=== PATIENT | female | born 1945 | race Caucasian/White ===

== ENCOUNTER → 2017-03-30 | Day surgery (SDC) | payer OTHER ==
[2017-03-12 09:23] VITALS: BMI 24.0
--- NOTE | 2017-03-29 13:30 | History and Physical ---
History & Physical Date Mar 29, 2017. Chief Complaint right foot pain History of Present Illness The patient is a 71 year old female with complaints of right foot 1st MTP joint pain. She had a previous hallux valgus correction and the 1st MTP arthritic change began worsening and her pain worsened. She was treated conservatively but failed conservative management. She is being set up for surgical tx. Past Medical/Surgical History Medical Problems: (1) History of orthopedic surgery (2) Hypertension Surgical Problems: (1) History of hysterectomy (2) History of oophorectomy (3) Cataract surgery Allergies Coded Allergies: No Known Allergies (Unverified , 03/12/17) Home Medications Scheduled Amlodipine (Norvasc), 5 MG PO HS Apoaequorin (Prevagen), 1 CAP PO HS Aspirin (Aspirin Chewable), 81 MG PO HS Brimonidine Tartrate (Alphagan P Oph), 1 DROP OPB BID Latanoprost (Latanoprost), 1 DROP OPB HS Zolpidem Tartrate (Ambien), 5 MG PO HS Physical Examination Skin: warm/dry, no rash, + pertinent finding (Healed surgical incisions right forefoot.) Eyes: normal inspection ENT: normal ENT inspection Head: normocephalic, atraumatic Neck: supple, no adenopathy, trachea midline Respiratory/Chest: lungs clear, normal breath sounds, no respiratory distress Cardiovascular: regular rate, rhythm Abdomen / GI: normal bowel sounds, non tender Extremities: + pertinent finding (Right foot: antalgic right gait. 1st MTP swelling and tenderness. 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 Plan of Treatment Recommend a right foot 1st MTP Arthrosurface 1st MTP hemiarthroplasty. All potential risks, benefits, complications, alternatives, and rehab have been discussed and the patient wishes to proceed. She will be scheduled for 03.30.17.
[~2017-03-30] VITALS: Ht 157.5 cm; Wt 61.4 kg
[~2017-03-30] MED LIST: AMLO-110 PO; APOA1CAP PO; ASPCH81X PO; ATROPINE SULFATE 0.1 MG/ML 5ML SYR IV PRN; BACITRACIN 50000 UNIT VIAL ONE; BRIM0.1S OPB; DEXAMETHASONE SOD INJ 4 MG/ML VIAL ONE; EpHEDrine SULFATE INJ 50 MG/ML AMP IV PRN; FENTANYL CITRATE INJ 50 MCG/1 ML 2 ML VIAL IV PRN; FENTANYL CITRATE INJ 50 MCG/1 ML 2 ML VIAL ONE; FLUMAZENIL 0.1 MG/1 ML 10 ML VIAL IV PRN; HYDROmorphone INJ 1 MG/ML SYR ONE; HYDROmorphone INJ 2 MG/ML SYR/VIAL IV PRN; KETOROLAC TROMETHAMINE 30 MG/ML VIAL IV STA; KETOROLAC TROMETHAMINE 30 MG/ML VIAL ONE; LABETALOL HCL IV 5 MG/ML 20ML IV PRN; LACTATED RINGER'S 1000ML 1,000 ML IV SCH; LIDOCAINE HCL 2% 2 ML VIAL (20MG/ML) ONE; MEPERIDINE HCL 25 MG/ML CARP IV PRN; MIDAZOLAM HCL 1 MG/ML 2ML VIAL ONE; NALOXONE HCL 0.4 MG/1 ML VIAL/CARP IV PRN; NURSING VERBAL MED ORDER ONE; ONDANSETRON INJ 2 MG/ML 2 ML VIAL IV PRN; ONDANSETRON INJ 2 MG/ML 2 ML VIAL ONE; OXYC-57 PO; OXYCODONE/ACETAMINOPHEN 5-325 TAB PO PRN; PHENYLEPHRINE 100MCG/ML 5ML SYR IV PRN; PROMETHAZINE HCL INJ 12.5 MG in SODIUM CHLORIDE 0.9% 50ML 50 ML IV ONE; PROPOFOL IV EMULSION 10 MG/ML 20 ML VIAL IV ONE; ROPIVACAINE 0.5% 5 MG/ML 30 ML VIAL ONE; XLTOPS OPB; ZOLP5TAB PO
[2017-03-30 06:56] VITALS: BP 110/71; PULSE 66; TEMP 36.7; O2SAT 20; Ht 157.5 cm; Wt 61.4 kg
--- NOTE | 2017-03-30 07:41 | History & Physical Bridge Note ---
H&P Re-Evaluation Bridge Note: I have examined the patient, reviewed the History & Physical and in the interval since the performance of the History & Physical I have noted the following changes of clinical significance: No changes noted
[2017-03-30] MEDS: CEFAZOLIN 1000MG IV PUSH 5 ML IV SCH ×2 (08:12→08:35)
--- NOTE | 2017-03-30 09:39 | [facility] Post Operative Brief Note ---
Immediate Operative Summary Operative Date Mar 30, 2017. Pre-Operative Diagnosis Right 1st Metatarsophalangeal Osteoarthritis, Hallux Rigidus Post-Operative Diagnosis Right 1st Metatarsophalangeal Osteoarthritis, Hallux Rigidus Procedure(s) Performed Right Foot Arthrosurface 1st Metatarsophalangeal Joint Hemiarthroplasty Surgeon Dr. Mario Grady Potato Peeling Machine Operator Surgeon(s) CALVIN Weathers Estimated Blood Loss 1CC Findings Consistent with Post-Op Diagnosis Specimens NONE PER SURGEON Drains None Anesthesia Type General Regional Complication(s) none Disposition Accompanied Pt To Recover: no Disposition: Recovery Room / PACU
--- NOTE | 2017-03-30 09:46 | Discharge Instructions ---
Discharge Instructions Date of Service Mar 30, 2017. Admission Reason for Admission: Right Ankle And Foot Osteoarthritis Discharge Discharge Diagnosis / Problem: right 1st metatarsophalangeal osteoarthritis Discharge Goals Goal(s): Decrease discomfort, Improve function Activity Recommendations Activity Limitations: per Instructions/Follow-up section Weightbearing Status: Right partial (heel weightbearing only) . Instructions / Follow-Up Instructions / Follow-Up ACTIVITY RECOMMENDATIONS: Limitations: Heel weight bearing only if able to tolerate. Range of motion: When tolerated, you may do gentle range of motion with the great toe with your hands. Do not force any range of motion. Light, gentle motion only. SPECIAL CARE INSTRUCTIONS: * Some drainage onto the dressing is normal and is no cause for alarm. * Some swelling is natural especially after walking. * When resting, keep your foot elevated above the level of your heart. * Call [facility] if you notice: -Increased drainage -Fever over 101 degrees F -Severe constant pain BANDAGE: * Leave bandage/cast in place unless otherwise directed. * Keep bandage/cast dry at all times. PIN CARE: * Leave pins alone. * If pins come loose or fall out, notify physician. FOLLOW UP VISIT WITH DR. ZAVALA If appointment is not already scheduled: Please call [facility] after you get home today to schedule a follow-up appointment for [address] Zavala at . Current Hospital Diet Patient's current hospital diet: Discharge Diet Recommended Diet: Regular Diet Procedures Procedures Performed: Right Foot Arthrosurface 1st Metatarsophalangeal Joint Hemiarthroplasty Pending Studies Studies pending at discharge: no Medical Emergencies . Who to Call and When: Medical Emergencies: If at any time you feel your situation is an emergency, please call 911 immediately. . Non-Emergent Contact Non-Emergency issues call your: Surgeon Call Non-Emergent contact if: temperature is above 101, your pain is not controlled, your pain is worsening, wound has increased drainage, wound has increased redness . "Provider Documentation" section prepared by Shane Quevedo. . VTE Core Measure Inpt VTE Proph given/why not?: SCD's
--- NOTE | 2017-03-30 09:55 | DIAGNOSTIC IMAGING REPORT ---
R FOOT 2 VIEWS CLINICAL HISTORY: Right foot reconstruction. FLUOROSCOPY TIME: 21 seconds. FINDINGS: Osteotomies at the distal second and third metatarsals. There is a single screw fusing the PIP joint of the third toe and a single screw fusing the first tarsometatarsal joint. There is an arthroplasty at the first MTP joint. The hardware appears intact. IMPRESSION: Fluoroscopy provided for right foot reconstruction as described above. Electronically signed by: Andrei Mueller M.D. 03/30/2017 9:54 AM Dictated Date/Time: 03/30/2017 9:52 AM
--- NOTE | 2017-03-30 10:25 | OPERATIVE REPORT ---
DATE OF OPERATION: 03/30/2017 PREOPERATIVE DIAGNOSES: 1. Right first metatarsophalangeal joint degenerative joint disease. 2. Hallux rigidus. POSTOPERATIVE DIAGNOSES: Same. PROCEDURE: Right foot first metatarsophalangeal joint Arthrosurface hemiarthroplasty using a 9.5-mm taper post and a 15-mm articular component, dorsiflexion 2.5 mm x 4.5 mm offset. SURGEON: Dr. Dean Grady. CENTER MACHINE SET UP OPERATOR: Shane Quevedo PA-C, who was present for patient positioning, sterile prep and drape, management of retractors and instruments. He was present through the critical portions of the case including wound closure, application of sterile dressing and transport of the patient to recovery. ANESTHESIA: General LMA with popliteal block. SPECIMENS: None. DRAINS: None. COMPLICATIONS: None. BLOOD LOSS: 1 mL. PERTINENT HISTORY: This is a 71-year-old female who had persistent chronic and worsening degenerative arthritis of the right foot first metatarsophalangeal joint. She has lost her range of motion and had significant pain and discomfort with limited ability to ambulate, choice of shoe wear and ability to work without pain. She attempted and failed conservative management including anti-inflammatories, shoe wear modification, activity modification, shoe inserts and physician directed home exercises. Radiographically demonstrated complete loss of joint space of the first metatarsophalangeal joint with marginal osteophytes, subchondral sclerosis and subchondral cysts. The patient was then scheduled for surgery as indicated. All potential risks, benefits, complications, alternatives, rehab, potential for incomplete relief of symptoms, need for further surgery, DVT, PE, , persistent pain, swelling, scarring, weakness, neurovascular injury, wound complications, hardware failure, nonunion, malunion, and bone fracture were discussed with the patient. The patient decided to proceed with the procedure as indicated. DESCRIPTION OF PROCEDURE: After popliteal block was administered, the patient was taken to the operative suite, placed supine on the operating room table. After reviewing consent and identification of proper operative site, the patient was anesthetized, LMA was placed. Tourniquet was placed high on the right thigh over cast padding. Left lower extremity was then sterilely prepped and draped in the usual fashion, elevated and exsanguinated with an Esmarch bandage. Esmarch tourniquet was applied over sterile surgical towel at the level of the ankle. The pneumatic tourniquet was not used during the case. Next, a 15 blade scalpel was used to make an incision over the dorsal aspect of the first metatarsophalangeal joint. The incision was then deepened through the subcutaneous tissue. Meticulous hemostasis was achieved with electrocautery. Full thickness skin flaps were developed. The extensor hallucis longus was identified, freed, retracted, and protected laterally. Next, a Weitlaner retractor was placed in the incision and then the dorsal capsule and extensor brevis was then incised in line with skin incision, elevated both medially and laterally. Next, a hypertrophic synovium was encountered and this was resected with a rongeur. Next, the capsule was then retracted with a rongeur and a 15 blade scalpel was used to release the capsular attachments of the first metatarsophalangeal joint dorsally, medially and laterally. Next, a McGlamry elevator was placed into the joint between the first metatarsal and the sesamoids. This was then hyperplantarflexed to release soft tissue contracture. Next, the rongeur was used to resect marginal osteophytes at the proximal phalanx of the great toe. Next, the wound was copiously irrigated with sterile normal saline. This was then followed by use of a guide pin and under fluoroscopic assistance was placed essentially into the center-center position of the first metatarsal. Next, the initial reamer was passed over the guidepin and used to ream for the post. Next, the bone tap was then used to tap the first metatarsal followed by irrigation with copious amounts of sterile normal saline with bacitracin and then implantation of the threaded post. This was countersunk approximately 1-1.25 mm. Next, the Bear taper alignment yolis was then placed into the threaded post followed by measurement of the first metatarsal head. Next, appropriate dorsal phalange reamer was then placed into the threaded posts and then used to ream the dorsal phalange of the first metatarsal. Next, this was irrigated with sterile normal saline. A trial was then placed gently into the Simón taper of the threaded post and then a sagittal saw was used to resect osteophytes circumferentially from around the trial within the first metatarsal head. Next, after excess bone was then excised wound was irrigated once again with sterile normal saline. This was then followed by impaction of the final implant into the threaded post and radiographs were obtained confirming position and alignment. Next, the wound was once again irrigated with sterile normal saline. The dorsal capsule was closed using 3-0 Vicryl suture then followed by closure of the dermis with buried interrupted 3-0 Vicryl x2 sutures and the skin was then closed using 4-0 nylon. Next, sterile compressive forefoot dressing was applied overwrapped with Coban. The tourniquet was released. The patient was awakened and taken to recovery in stable condition. I attest to the content of the Intraoperative Record and any orders documented therein. Any exception s are noted below.
--- NOTE | 2017-03-30 10:42 | Anesthesiology Progress Note ---
Anesthesia Post Op Note Date & Time Mar 30, 2017 at 10:39 Vital Signs Pain Intensity: 4 Vital Signs Past 12 Hours Date Time Temp Pulse Resp B/P (MAP) Pulse Ox O2 Delivery O2 Flow Rate FiO2 03/30/17 10:20 36.3 60 16 127/83 92 Nasal Cannula 2 03/30/17 10:10 67 16 127/83 92 Room Air 03/30/17 10:00 67 16 129/83 94 Oxymask 3 03/30/17 09:50 80 16 131/80 93 Oxymask 5 03/30/17 09:44 36.1 68 16 126/77 94 Oxymask 5 03/30/17 06:56 36.7 66 20 110/71 (84) 20 Room Air Notes Mental Status: alert / awake / arousable, participated in evaluation Pt Amnestic to Procedure: Yes Nausea / Vomiting: adequately controlled, improving with treatment Pain: adequately controlled, improving with treatment Airway Patency, RR, SpO2: stable & adequate BP & HR: stable & adequate Hydration State: stable & adequate Anesthetic Complications: no major complications apparent The patient was having some pain in the PACU so a supplemental popliteal block was performed. Sterile technique with ultrasound and nerve stimulator. 22 gauge needle. 30 ml of 0.5% ropivacaine. The patient tolerated it well. She was given Zofran for nausea.
[2017-03-30 10:45] VITALS: BP 145/96; PULSE 72; TEMP 36.2; O2SAT 94
[2017-03-30 11:15] VITALS: BP 141/77; PULSE 71; TEMP 35.6; O2SAT 93
[2017-03-30 11:45] VITALS: BP 141/85; PULSE 78; TEMP 36.5; O2SAT 96
[2017-03-30 12:45] VITALS: BP 135/88; PULSE 69; O2SAT 95
[2017-03-30 13:45] VITALS: BP 120/71; PULSE 69; TEMP 36.6; O2SAT 95
== END | disposition home or self-care (01) ==
LOC: C.ACU 06:31
PROVIDERS: ATTEND Orthopaedic Surgery Sports Medicine
DX: M19.071 Primary osteoarthritis, right ankle and foot (principal); M20.21 Hallux rigidus, right foot; I10 Essential (primary) hypertension; Z98.890 Other specified postprocedural states; Z90.710 Acquired absence of both cervix and uterus